=== PATIENT | female | born 1980 | race African-American/Black ===

== ENCOUNTER 2018-05-10 13:23 | Emergency (ER) | payer OTHER ==
[~2018-05-10] VITALS: Ht 157.5 cm; Wt 76.7 kg
[2018-05-10] MEDS ORDERED: CELEXA20 MG PO (13:32)
[2018-05-10] MEDS ORDERED: IRON325 PO (13:32)
[2018-05-10] MEDS ORDERED: PRENATAL PO (13:33)
[2018-05-10] MEDS ORDERED: HYDROCODONE-AP1 EAC6 PO (15:13)
[2018-05-10 15:37] VITALS: BP 149/93
== END 2018-05-10 15:38 | disposition home or self-care (01) ==
LOC: ER 13:23
DX: S01.81XA Laceration without foreign body of other part of head, initial encounter (principal); S05.12XA Contusion of eyeball and orbital tissues, left eye, initial encounter; R07.81 Pleurodynia; H92.03 Otalgia, bilateral; Y04.8XXA Assault by other bodily force, initial encounter; Y92.89 Other specified places as the place of occurrence of the external cause; Y93.89 Activity, other specified; Y99.8 Other external cause status

== ENCOUNTER 2020-07-06 11:25 | Emergency (ER) | payer OTHER ==
[~2020-07-06] VITALS: Ht 157.5 cm; Wt 80.3 kg
[~2020-07-06 11:25] MED LIST: CELEXA20 MG PO; HYDROCODONE-AP1 EAC6 PO; IRON325 PO; PRENATAL PO
[2020-07-06 14:30] VITALS: BP 163/85
== END 2020-07-06 14:31 | disposition home or self-care (01) ==
LOC: ER 11:25
DX: T14.8XXA Other injury of unspecified body region, initial encounter (principal); M54.2 Cervicalgia; M54.5 Low back pain; M25.571 Pain in right ankle and joints of right foot; M25.561 Pain in right knee; M25.562 Pain in left knee; Z79.899 Other long term (current) drug therapy; V49.9XXA Car occupant (driver) (passenger) injured in unspecified traffic accident, initial encounter; Y93.89 Activity, other specified; Y92.89 Other specified places as the place of occurrence of the external cause; Y99.8 Other external cause status

== ENCOUNTER 2021-12-18 11:48 | Emergency (ER) | payer OTHER ==
[~2021-12-18] VITALS: Ht 154.9 cm; Wt 77.1 kg
[2021-12-18 12:25] LABS: ABSOLUTE NEUTROPHILS 6.5 thou/uL (1.4-8.2); BASOPHILS 0.5 % (0.0-2.0); EOSINOPHILS 0.7 % (0.0-3.0); HEMATOCRIT 36.5 % (37.0-47.0); HEMOGLOBIN 12.3 gm/dL (12.0-15.0); LYMPHOCYTES 16.3 % (24.0-44.0); MCHC 33.9 g/dL (28.0-37.0); MCV 85.6 fL (80.0-100.0); MONOCYTES 8.1 % (1.0-8.0); PLATELET COUNT 307 thou/uL (150-400); POLYS 74.4 % (36.0-66.0); RBC 4.26 mil/uL (4.20-5.00); RDW 13.2 % (10.5-14.5); WBC 8.8 thou/uL (4.0-11.0)
[2021-12-18 12:39] LABS: CALCIUM 8.9 mg/dL (8.5-10.1); CREATININE 0.7 mg/dL (0.6-1.0); POTASSIUM 3.5 mmol/L (3.5-5.1)
[2021-12-18 12:42] LABS: APTT 29.7 Seconds (24.5-32.8); D-DIMER 0.32 ug/mLFEU (0.19-0.50); INR 0.98; PROTIME 10.7 Seconds (10.5-12.1)
[2021-12-18 12:53] LABS: ALBUMIN 3.6 g/dL (3.4-5.0); TOTAL BILIRUBIN 0.3 mg/dL (0.2-1.0); TOTAL PROTEIN 7.7 g/dL (6.4-8.2)
[2021-12-18 12:56] LABS: URINE BILIRUBIN NEGATIVE (Negative); URINE BLOOD NEGATIVE (Negative); URINE CLARITY CLEAR; URINE COLOR YELLOW; URINE GLUCOSE-RANDOM* NEGATIVE (Negative); URINE KETONES NEGATIVE (Negative); URINE LEUKOCYTES-REFLEX NEGATIVE (Negative); URINE NITRITE-REFLEX NEGATIVE (Negative); URINE PROTEIN (DIPSTICK) NEGATIVE (Negative); URINE UROBILINOGEN 0.2 E.U./dl (0.2-1.0)
[2021-12-18] MEDS ORDERED: LISINOPRIL10 MG PO (14:07)
[2021-12-18] MEDS ORDERED: DOXYCYCLINE 10100 MG PO (14:07)
[2021-12-18] MEDS ORDERED: PREDNISONE 20 M20 MG PO (14:07)
[2021-12-18 15:29] VITALS: BP 173/94
--- NOTE | 2021-12-18 16:12 | EKG ---
[address] [place] [address] ELECTROCARDIOGRAM REPORT Name: GEOFF MOORE [id number] Admission: 12/18/21 Attend Phys: Discharge: 12/18/21 Date of : 78 Report #: [id number] [facility] ED Test Date: 2021-12-18 Test Time: 11:58:40 Pat Name: GEOFF MOORE Department: Room: Gender: F Development Executive: BETTIE : 1980 Requested By: Bobby Padilla Order Number: [id number] MD: José Miguel Fernandes Measurements Intervals [place] Rate: 91 P: 57 CO: 160 QRS: 27 QRSD: 95 T: 25 QT: 396 QTc: 488 Interpretive Statements Sinus rhythm Probable left ventricular hypertrophy Borderline prolonged QT interval No previous ECG available for comparison Electronically Signed On 12-18-2021 16:11:52 [employer] by José Miguel Fernandes [email or web address] <ELECTRONICALLY SIGNED> By: José Miguel Fernandes MD, [facility] 12/18/21 1611 [id number] José Miguel Fernandes MD, FAC /EPI
== END 2021-12-18 15:40 | disposition home or self-care (01) ==
LOC: ER 11:48
PROVIDERS: Emergency Medicine
DX: J01.00 Acute maxillary sinusitis, unspecified (principal); Z20.822 Contact with and (suspected) exposure to COVID-19; I10 Essential (primary) hypertension; R06.00 Dyspnea, unspecified; U09.9 Post COVID-19 condition, unspecified; Z98.890 Other specified postprocedural states